=== PATIENT | female | born 1990 | race Caucasian/White ===

== ENCOUNTER 2016-11-04 23:06 | Emergency (ER) | payer BC ==
[2016-11-05] MEDS ORDERED: ALPRAZolam 0.25 MG TABLET PO STA (00:45)
[2016-11-05] MEDS ORDERED: ALPRAZolam 0.25 MG TABLET PO ONE (00:49)
== END 2016-11-05 00:57 | disposition home or self-care (01) ==
DX: F41.9 Anxiety disorder, unspecified (principal); E11.9 Type 2 diabetes mellitus without complications
CPT/HCPCS: 99283; A9270